=== PATIENT | male | born 1970 | race Caucasian/White ===

== ENCOUNTER → 2018-11-11 10:32 | Outpatient (CLI) | payer MEDICAID, SELFPAY ==
[2018-11-11 11:21] LABS: Absolute Lymphocyte Count 1.31 X10^3/ul (0.83-4.51); Absolute Neutrophil Count 3.2 X10^3/uL (2.0-7.7); Basophil# 0.02 X10^3/uL; Basophil% 0.4 % (0-1); Eosinophil# 0.12 X10^3/uL; Eosinophils% 2.4 % (0-5); Hematocrit 44.5 % (40-54); Hemoglobin 15.1 g/dl (13.0-16.5); Lymphocyte # 1.31 X10^3/ul (4.0); Lymphocyte % 25.7 % (19-41); Mean Corp Hgb Conc 33.9 g/gl (32-36); Mean Corpuscular Hgb 29.7 pg (27.0-32.0); Mean Corpuscular Volume 87.6 fL (80-94); Mean Platelet Vol. 9.5 fl (6.2-12.0); Monocyte# 0.46 X10^3/uL; Neutrophil # 3.18 X10^3/uL (2.7-7.7); Neutrophil % 62.3 % (47-70); Platelet Count 255 K/mm3 (150-450); RBC Distribution Width CV 12.7 % (11.6-14.6); Red Blood Count 5.08 M/mm3 (4.6-6.2); White Blood Count 5.1 K/mm3 (4.4-11.0)
[2018-11-11 11:25] LABS: POSITIVE COUNT NO; POSITIVE DIFFERENTIAL NO; POSITIVE MORPHOLOGY NO
[2018-11-11 11:52] LABS: Hemoglobin A1c 5.6 % (4.2-6.3)
[2018-11-11 12:29] LABS: AST(SGOT) 25 U/L (15-37); Alanine Aminotransfer ALT/SGPT 46 U/L (16-61); Albumin, Serum 3.9 g/dL (3.2-5.0); Alkaline Phosphatase 94 U/L (45-117); Anion Gap 8 (5-15); BUN 15 mg/dL (7-18); BUN/Creat Ratio 13.5 RATIO (10-20); Calcium,Total 9.1 mg/dL (8.5-10.1); Chloride 104 mmol/L (98-107); Creatinine, Serum 1.11 mg/dL (0.70-1.30); EST Glomerular Filtration Rate 75 mL/min (>60); Est Glom Filt Rate - Afr Amer 91 mL/min (>60); Globulin 3.8 g/dL (2.2-4.2); Glucose 88 mg/dL (74-106); Potassium 4.1 mmol/L (3.5-5.1); Protein, Total 7.7 g/dL (6.4-8.2); Sodium Level 139 mmol/L (136-145)
[2018-11-13 09:30] LABS: Vitamin B12 411 pg/mL (211-911)
== END ==
PROVIDERS: Family Provider Family Medicine; PCP Family Medicine; Referring Provider Family Medicine; Visit Provider Family Medicine
DX: K21.9 Gastro-esophageal reflux disease without esophagitis (principal); F10.10 Alcohol abuse, uncomplicated; G62.9 Polyneuropathy, unspecified
CPT/HCPCS: 36415; 80053; 82607; 82746; 83036; 85025

== ENCOUNTER → 2018-11-16 15:11 | Outpatient (CLI) | payer MEDICAID, SELFPAY ==
[2018-11-16 17:44] LABS: Cholesterol 242 mg/dL (200); High Density Lipoprotein 46 mg/dL; Triglycerides 262 mg/dL; Very Low Density Lipoprotein 52 mg/dL (5-40)
== END ==
PROVIDERS: Family Provider Family Medicine; PCP Family Medicine; Referring Provider Family Medicine; Visit Provider Family Medicine
DX: E78.5 Hyperlipidemia, unspecified (principal); G62.9 Polyneuropathy, unspecified
CPT/HCPCS: 36415; 80061; 84425

== ENCOUNTER 2019-05-11 19:27 | Emergency (ER) | payer MEDICAID, SELFPAY ==
[2019-05-11 19:28] VITALS: BP 169/102; PULSE 84; RESP 18; TEMP 36.8; O2SAT 96; BMI 34.4
--- NOTE | 2019-05-11 20:21 | ED.VISSUMM ---
- ER Visit Summary Date of Service: 05/11/19 Chief Complaint: [Injury to the right calf] History of Present Illness: The patient is a 48 M [presents to the emergency department with injury to the right calf that occurred earlier today. Patient states that he wanted to climb a ladder and as soon as he put his right foot on the lateral he felt a pop and felt like somebody shot him in the right calf.] Patient having a hard time bearing weight secondary to pain. He complains of swelling to the area. Patient has no medical history otherwise. He is not on any blood thinners. Physical Examination: [HEENT-PERRLA, EOMI. Cranial nerves II through XII grossly intact. TMs clear. Mucous membranes moist. No adenopathy. Cardiovascular-regular rate and rhythm without murmur or ectopy Lungs-clear to auscultation, chest wall stable without crepitus or subcu emphysema Abdomen-normoactive bowel sounds, soft, nontender, no rebound or rigidity, no peritoneal signs. Extremities-intact ?4, normal range of motion, normal pulses. Right calf-patient has tenderness to the mid calf that reproduces his pain. The Achilles tendon is intact without any defect in it and he has a normal Warren's test with normal dorsiflexion and plantar flexion at the foot. Vascular intact. There is no sign of compartment syndrome at this time.] Test Results: [None indicated] Emergency Department Course and Treatment: [Patient will be given crutches and an Isaac wrap. I did discuss case with orthopedics on-call Dr. Del Cid who will be happy to see patient in follow-up in the office.] Treatment Plan: [Patient advised to do calf pumps throughout the day.] Patient does not anything for pain. Disposition: [Discharged home in stable condition.] Impression: [Right calf strain with suspected muscle tear] This note was generated with [employer] dictation software. It may contain incorrect words, spelling, and punctuation that were not noted in review of the chart prior to signing ED Disposition - Plan for ED Patient: Referrals: Govind Otto MD [Primary Care Provider] -
--- NOTE | 2019-05-11 20:27 | ED.DEP ---
ED Disposition - Plan for ED Patient: Instructions: MUSCLE STRAIN, Extremity Referrals: Blaise Del Cid MD [STAFF PHYSICIAN] - 5-7 Days
[2019-05-11 21:11] VITALS: PULSE 84; RESP 18; O2SAT 96
== END 2019-05-11 21:13 | disposition home or self-care (01) ==
LOC: ED 19:57
PROVIDERS: Emergency Provider Emergency Medicine; Family Provider Family Medicine; PCP Family Medicine
DX: S86.111A Strain of other muscle(s) and tendon(s) of posterior muscle group at lower leg level, right leg, initial encounter (principal); X58.XXXA Exposure to other specified factors, initial encounter; Y93.39 Activity, other involving climbing, rappelling and jumping off
CPT/HCPCS: 99283

== ENCOUNTER → 2019-05-21 10:20 | Outpatient (CLI) | payer MEDICAID, SELFPAY ==
[2019-05-21 10:14] VITALS: BMI 34.4
--- NOTE | 2019-05-21 10:21 | RAD_ITS ---
HISTORY: INJURY TO CALF X 1.5 WEEKS ADDITIONAL HISTORY: None provided. TECHNIQUE: Right tibia fibula 2 views Number of images including paperwork: 2 COMPARISON: None FINDINGS: BONES: No acute fracture. JOINTS: No subluxation. SOFT TISSUES: No distinct foreign body. RAD/Tibia & Fibula 2 Views IMPRESSION: No acute osseous abnormality. at 0020 Reported and signed by: Morena Roy MD Electronically Signed: Morena Roy MD at 0:19 EST Tel , Service support ,
== END ==
PROVIDERS: Family Provider Family Medicine; PCP Family Medicine; Referring Provider Physician Assistant; Visit Provider Physician Assistant
DX: M79.661 Pain in right lower leg (principal)
CPT/HCPCS: 73590

== ENCOUNTER → 2022-12-16 | Outpatient (CLI) | payer MEDICAID, SELFPAY ==
[2022-12-16 10:17] LABS: Absolute Lymphocyte Count 1.06 X10^3/uL (0.83-4.51); Absolute Neutrophil Count 2.8 X10^3/uL (2.0-7.7); Basophil# 0.04 X10^3/uL; Basophil% 0.9 % (0-1); Eosinophil# 0.11 X10^3/uL; Eosinophils% 2.5 % (0-5); Hematocrit 46.1 % (40-54); Hemoglobin 15.3 g/dL (13.0-16.5); Lymphocyte # 1.06 X10^3/ul (0.83-4.51); Lymphocyte % 23.8 % (19-41); Mean Corp Hgb Conc 33.2 g/dL (32-36); Mean Corpuscular Hgb 29.9 pg (27.0-32.0); Mean Platelet Vol. 9.5 fl (6.2-12.0); Monocyte# 0.44 X10^3/uL; Monocyte% 9.9 % (0-10); NRBC Flagged by Analyzer 0 % (0-5); Neutrophil # 2.79 X10^3/uL (2.7-7.7); Neutrophil % 62.5 % (47-70); Platelet Count 254 K/mm3 (150-450); RBC Distribution Width CV 12.2 % (11.6-14.6); RBC Distribution Width SD 40.2 fl (35.1-43.9); Red Blood Count 5.12 M/mm3 (4.6-6.2); White Blood Count 4.5 K/mm3 (4.4-11.0)
[2022-12-16 10:45] LABS: Vitamin D,25 Hydroxy 36.8 ng/mL
[2022-12-16 11:05] LABS: ALB/GLOB Ratio 1.2 RATIO (0.9-2.4); AST(SGOT) 26 U/L (15-37); Alanine Aminotransfer ALT/SGPT 49 U/L (16-61); Albumin, Serum 3.8 g/dL (3.2-5.0); Alkaline Phosphatase 89 U/L (45-117); Anion Gap 7 (5-15); BUN 21 mg/dL (7-18); BUN/Creat Ratio 22.9 RATIO (10-20); Calcium,Total 8.8 mg/dL (8.5-10.1); Chloride 102 mmol/L (98-107); Cholesterol 280 mg/dL (200); Creatinine, Serum 0.92 mg/dL (0.70-1.30); EST Glomerular Filtration Rate 92 mL/min (>60); Est Glom Filt Rate - Afr Amer 112 mL/min (>60); Globulin 3.3 g/dL (2.2-4.2); Glucose 111 mg/dL (74-106); High Density Lipoprotein 39 mg/dL; Potassium 4.4 mmol/L (3.5-5.1); Protein, Total 7.1 g/dL (6.4-8.2); Sodium Level 137 mmol/L (136-145); Triglycerides 445 mg/dL
[2022-12-16 17:18] LABS: Hemoglobin A1c 5.4 % (3.8-5.6)
[2022-12-21 08:11] LABS: VITAMIN B6 37.1 ug/L (3.4-65.2)
== END | disposition home or self-care (01) ==
LOC: MFPLAB 09:23
PROVIDERS: PCP Family Medicine; Visit Provider Family Medicine
DX: Z00.00 Encounter for general adult medical examination without abnormal findings (principal); E78.5 Hyperlipidemia, unspecified; F10.10 Alcohol abuse, uncomplicated; R73.09 Other abnormal glucose
CPT/HCPCS: 36415; 80053; 80061; 82306; 82746; 83036; 84207; 85025

== ENCOUNTER → 2024-09-12 | Outpatient (CLI) | payer OTHER, SELFPAY ==
--- NOTE | 2024-09-12 08:04 | CT_ITS ---
PROCEDURE: LOW DOSE CT LUNG SCREENING 09/12/2024 REASON FOR EXAM: SCREENING Former smoker. Patient has smoked 3 packs per day for many years. TECHNIQUE: Low Dose CT Lung screening without contrast. One or more dose reduction techniques were used (e.g., Automated exposure control, adjustment of the mA and/or kV according to patient size, use of iterative reconstruction technique). REFERENCE LINK: [facility] Lung-RADS RADIATION DOSE SUMMARY: CTDlvol: 3.02 mGy DLP: 110.61 mGycm COMPARISON: None. FINDINGS: PULMONARY NODULES: (Only nodules >3mm are reported) Nodules described below are on series 1 unless otherwise specified. Pulmonary Nodules: No suspicious pulmonary nodule seen. Punctate calcified granuloma in the peripheral lateral aspect of the right upper lobe as seen on axial image number 53 [place] re:None Lymph Nodes:Small benign-appearing mediastinal lymph nodes. No hilar lymph nodes. Heart and Vasculature:The heart is nonenlarged. Coronary Artery Calcifications: Absent Lungs and Airways: Mild dependent atelectasis. Pleura:Unremarkable Upper Abdomen:Unremarkable Bones:Degenerative changes of the thoracic spine. CT/Low Dose CT Lung Screening IMPRESSION: No suspicious nodule seen. Coronary artery calcification (CAC) is is absent Lung-RADS Category: 2 BENIGN (BASED ON IMAGING FEATURES OR INDOLENT BEHAVIOR). RECOMMEND 12-MONTH SCREENING LDCT. Other Significant Findings: None. Reading Location: [place] [id number]
== END | disposition home or self-care (01) ==
PROVIDERS: PCP Family Medicine; Referring Provider Nurse Practitioner Family; Visit Provider Nurse Practitioner Family
DX: Z12.2 Encounter for screening for malignant neoplasm of respiratory organs (principal); Z87.891 Personal history of nicotine dependence
CPT/HCPCS: 71271

== ENCOUNTER → 2024-10-04 | Outpatient (CLI) | payer OTHER, SELFPAY ==
--- NOTE | 2024-10-04 11:30 | RAD_ITS ---
PROCEDURE: KNEE 4 OR MORE VIEWS 10/04/2024 REASON FOR EXAM: PAIN TECHNIQUE: 4 view(s) of the left knee COMPARISON: None available FINDINGS: Abnormal appearance of the anterior tibial tuberosity with exuberant bone formation and discontinuity with the tibia and associated tibial tendon and prepatellar soft tissue thickening appearance which may represent Angie-Schlatter's variant disease. Joint spaces appear within limits. No dislocation or joint effusion. RAD/Knee 4 or More Views IMPRESSION: Abnormal appearance of the anterior tibial tuberosity with exuberant bone forma tion and discontinuity with the tibia and associated tibial tendon and prepatellar soft tissue thickening appearance whic h may represent Angie-Schlatter's variant disease. Reading Location: [id number]
[2024-10-04 15:44] LABS: Anion Gap 12 (5-15); BUN 13 mg/dL (4-19); BUN/Creat Ratio 14.6 RATIO (10-20); Calcium,Total 9.4 mg/dL (7.6-11.0); Carbon Dioxide 24.4 mmol/L (21.0-32.0); Chloride 101 mmol/L (98-108); Cholesterol 251 mg/dL (<=200); EST Glomerular Filtration Rate 102 (>60); Glucose 100 mg/dL (70-99); High Density Lipoprotein 46 mg/dL; Low Density Lipoprotein Calc. 170 mg/dL; PSA,Total - Annual Screen 1.57 ng/mL (0.02-4.00); Potassium 4.2 mmol/L (3.3-5.1); Sodium Level 138 mmol/L (133-145); Triglycerides 175 mg/dL; Very Low Density Lipoprotein 35 mg/dL (5-40); cholesterol:hdl ratio screen 5.49
== END | disposition home or self-care (01) ==
LOC: MTRAD 11:29
PROVIDERS: Nurse Practitioner Family; PCP Family Medicine; Referring Provider Family Medicine; Visit Provider Family Medicine
DX: M25.562 Pain in left knee (principal); Z13.1 Encounter for screening for diabetes mellitus; Z13.220 Encounter for screening for lipoid disorders; Z12.5 Encounter for screening for malignant neoplasm of prostate
CPT/HCPCS: 36415; 73564; 80048; 80061; 84153; G0103